=== PATIENT | female | born 1965 | race Caucasian/White ===

== ENCOUNTER 2016-12-12 06:14 | Day surgery (SDC) | payer OTHER ==
[2016-12-10 17:40] VITALS: BMI 25.4
[2016-12-12] MEDS ORDERED: PROPOFOL 20 ML ONE (07:43)
[2016-12-12] MEDS ORDERED: LIDOCAINE HCL/PF 2% SDV 5ML VIAL ONE (07:44)
[2016-12-12] MEDS ORDERED: MIDAZOLAM HCL 2 MG/2 ML SINGLE DOSE VIAL ONE (07:44)
[2016-12-12] MEDS ORDERED: SODIUM CHLORIDE 0.9% P/F 10 ML VIAL IJ ONE (07:45)
[2016-12-12] MEDS ORDERED: ceFAZolin SODIUM 1 GM VIAL ONE (07:45)
[2016-12-12] MEDS ORDERED: DEXAMETHASONE SOD PHOSPHATE 4 MG/1 ML VIAL ONE (08:19)
[2016-12-12] MEDS ORDERED: LIDOCAINE 1%/EPI 1:100000 (50 ML MULTI DOSE VIAL) INF ONE (08:45)
[2016-12-12] MEDS ORDERED: BUPIVACAINE HCL/PF 0.5% (5MG/ML) 10 ML VIAL IJ ONE (08:46)
[2016-12-12] MEDS ORDERED: ONDANSETRON 4 MG/2 ML VIAL IVPUSH PRN (09:06)
[2016-12-12] MEDS ORDERED: PROMETHAZINE HCL 25 MG/1 ML VIAL IVPUSH PRN (09:06)
[2016-12-12] MEDS ORDERED: oxyCODONE HCL 5 MG TABLET PO PRN (09:06)
[2016-12-12] MEDS ORDERED: LACTATED RINGERS SOLUTION 1,000 ML IV SCH (09:15)
[2016-12-12 10:13] VITALS: TEMP 97.8
[2016-12-12] MEDS ORDERED: oxyCODONE HCL 5 MG TABLET ONE ×2 (10:37→11:39)
[2016-12-12] MEDS ORDERED: oxyCODONE HCL 5 MG TABLET PO ONE (10:37)
[2016-12-12 11:26] VITALS: BP 130/75; PULSE 65
--- NOTE | 2016-12-12 11:59 | HP ---
[facility] - Chief Complaint Chief Complaint: left knee pain - Past Medical History Allergies/Adverse Reactions: Allergies Allergy/AdvReac Type Severity Reaction Status Date / Time clarithromycin [From Biaxin] Allergy Mild Rash Verified 12/10/16 17:40 ...LMP Comment: lmp 2014 - Current Medications Current Medications: Home Medications Medication Instructions Recorded Acetaminophen [Tylenol -] 1,000 mg PO Q6H 12/12/16 Oxycodone HCl/Acetaminophen 1 - 2 tab PO Q6H #50 tab MDD 8 12/12/16 [Percocet 5-325 mg Tablet -] [facility] Physical Exam - Physical Examination Vital Signs: Vital Signs Period Temp Pulse Resp BP Sys/Simmons Pulse Ox Last 24 Hr 97.6 F-98.0 F 45-65 10-20 111-141/67-87 97-100 General Appearance: Well Nourished, Well Developed, Alert & Oriented x3 ENT: Clear Lung: Normal air movement Heart: Regular rate & rhythm Extremities: Other (left knee- + swelling, + ttp, decr rom, + mcmurrays, nvi MRi + mmt) Neurological: Intact, Alert, Oriented [facility] Impression/Plan - Impression/Plan Impression: left knee internal derangement Operative Procedure: left knee arthroscopy Date to be Performed: 12/12/16
--- NOTE | 2016-12-12 12:03 | OP ---
Operative Note - Note: Operative Date: 12/12/16 [facility] Pre-Operative Diagnosis: left knee internal derangement Operation: left knee arthroscopy with PMM Post-Operative Diagnosis: Same as Pre-op Surgeon: Fred Easton Anesthesiologist/TRANSPLANT NURSE PRACTITIONER: Matias Laureano Anesthesia: General, Local Specimens Removed: shavings Estimated Blood Loss (mls): 5 Operative Report Dictated: Yes
--- NOTE | 2016-12-13 01:14 | SPEC ---
DATE OF OPERATION: 12/12/2016 OPERATION: Arthroscopy, left knee, with partial medial meniscectomy. PREOPERATIVE DIAGNOSIS: Internal derangement, left knee. POSTOPERATIVE DIAGNOSIS: Internal derangement, left knee. SURGICAL ATTENDING: Steven Rivera M.D. MANAGER FIELD INVESTIGATIONS SURGEON: Fred Easton M.D. ANESTHESIA: General with LMA. CLOSURE: 4-0 nylon. COMPLICATIONS: None. CONDITION: To recovery room in stable condition. DESCRIPTION OF OPERATIVE PROCEDURE: Patient was taken to the operating room and general anesthesia with LMA was administered by the anesthesiologist. Left lower extremity was prepped and draped in usual sterile fashion. The supralateral and medial lateral infrapatellar portal sites were infiltrated with 1% Xylocaine with epinephrine. Supralateral portal was made with a 15 blade blunt trocar. The left knee was aspirated and inflated with a cocktail of 10 mL of 1% Xylocaine with 0.5% Marcaine and 20 mL of arthroscopic saline. Medial and lateral infrapatellar portals were then made with a 15 blade blunt trocar. The scope was placed in the lateral infrapatellar portal and up into the suprapatellar pouch. Pouch was visualized to be clean. The medial and lateral gutters were visualized to be clean. The undersurface of the patella and trochlea were visualized to be intact. With valgus stress on the knee, the medial compartment was entered and medial meniscus was visualized, probed, and found to have a complex tear of the posterior horn. This was debrided back to smooth and stable meniscal tissue using meniscal biters and arthroscopic shaver. Medial femoral condyle was run and found to be intact as was the medial tibial plateau. At 90 degrees the ACL was visualized, probed and found to be intact. In the figure four position, the lateral compartment was entered. Lateral meniscus was visualized, probed and found to be intact. The lateral femoral condyle was run and found to be intact as was the lateral tibial plateau. The knee was irrigated with copious amounts of irrigation. The portals were closed with 4-0 nylon. Prior to closure of the supralateral portal, 20 mL of 0.5% Marcaine was infused through the outflow portal prior to pulling the cannula. Sterile pressure dressing was placed over the knee. Patient was awakened from anesthesia and transferred to recovery room in stable condition. No complications. Estimated blood loss was negligible. FRED EASTON M.D. [id number]
--- NOTE | 2016-12-13 13:53 | PATH ---
Surgical Pathology Report Patient Name: NAKUL NGUYEN [facility]. Rec. #: [id number] /Age/Gender: 1965 (Age: 51) / F Account: [id number] Location: [facility] SURGICAL Taken: 12/12/2016 Received: 12/12/2016 Reported: 12/13/2016 Physicians: Fred Easton M.D. Specimen(s) Received LEFT KNEE SHAVINGS Clinical History Left knee internal derangement Final Diagnosis KNEE, LEFT, ARTHROSCOPIC SHAVING: FIBROCARTILAGE WITH MYXOID DEGENERATIVE CHANGES, ALONG WITH PORTIONS OF SYNOVIUM WITH CHRONIC INFLAMMATION, AND HYALINE CARTILAGE. Electronically Signed Kwasi Seay M.D. Gross Description Received in formalin, labeled "left knee shavings," is a 3.2 x 2.3 x 0.3 cm. aggregate of holloway-yellow soft tissue fragments. A telephone services sales representative portion is submitted in one cassette. /12/12/2016 saudi/12/12/2016
== END 2016-12-12 12:11 | disposition home or self-care (01) ==
LOC: JASU-SURG 06:14
PROVIDERS: ATTEND Orthopaedic Surgery
PROC: 0SBD4ZZ Excision of Left Knee Joint, Percutaneous Endoscopic Approach (ICD-10-PCS; principal; 2016-12-12 08:00)
DX: S83.232A Complex tear of medial meniscus, current injury, left knee, initial encounter (principal); X58.XXXA Exposure to other specified factors, initial encounter; Y93.9 Activity, unspecified; Y92.9 Unspecified place or not applicable
CPT/HCPCS: 88304-TC; 94760